=== PATIENT | male | born 1990 | race Caucasian/White ===

== ENCOUNTER 2017-08-27 20:19 | Emergency (ER) | payer SELFPAY ==
[~2017-08-27] VITALS: Ht 175.3 cm; Wt 90.7 kg
[~2017-08-27 20:19] MED LIST: AMIODARONE 150 MG/3 ML VIAL IV ONE; CODE BLUE PARTICIPANT 1 EA MISC MC ONE; NALOXONE 0.4 MG/ML VIAL ONE
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
--- NOTE | 2017-08-27 20:21 | NUR ---
TIME OF PRONOUNCED AT THIS TIME BY DR. SUTTON
--- NOTE | 2017-08-27 20:31 | NUR ---
CALLED [facility]. REF. # [id number].
--- NOTE | 2017-08-27 20:35 | NUR ---
CALLED [facility] AT [phone] AND SOMEONE WILL GET BACK TO ME.
--- NOTE | 2017-08-27 20:44 | NUR ---
HUMZA FROM [facility] CALLED.
--- NOTE | 2017-08-27 21:40 | NUR ---
DEPUTY SALEH FROM [facility] CALLED REGARDING CASE.
--- NOTE | 2017-08-27 22:45 | NUR ---
TRUCK TECHNICIAN IS HERE, DEPUTY SALEH.
--- NOTE | 2017-08-27 23:09 | NUR ---
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
--- NOTE | 2017-08-27 23:23 | NUR ---
PT BODY TAKEN BY DIRECTOR OF CLINICAL EDUCATION TRANSPORT
--- NOTE | 2017-08-27 23:31 | NUR ---
Patient Tranfers to outside Facility Location:[facility] DEPUTAlfredo SALEH ALL BELONGING SENT WITH PT
== END 2017-08-27 20:21 | disposition expired ==
LOC: EDBD 20:19 → MED 20:19
DX: I46.9 Cardiac arrest, cause unspecified (principal)
CPT/HCPCS: 92950; 99285; J0282; J2310